=== PATIENT | male | born 1975 | race Caucasian/White ===

== ENCOUNTER → 2017-06-12 | Outpatient (CLI) | payer BC ==
--- NOTE | 2017-06-13 15:04 | SLEEP ---
DATE OF STUDY: 06/12/2017 DATE OF STUDY: 06/12/2017 ATTENDING PHYSICIAN: Dr. Richard Rodríguez. The patient is 41 years old who has a BMI of 31. The patient underwent home sleep study to rule out SHARMAINE. Total recording time was 348 minutes. During the night study, the patient had no central apneas, 14 obstructive and 13 mixed apneas and 8 hypopneas. The patient's apnea hypopnea index was 6 per hour with a supine index of 46 per hour. Nocturnal oximetry study revealed 19.8 minutes were spent in oxygen saturation of less than 90% with the lowest of 85%. Mean heart rate was 76 beats per minute. IMPRESSION: 1. Mild sleep apnea-hypopnea syndrome with worsening during supine sleep. Total AHI 6 per hour with a supine AHI of 46 per hour. 2. Nocturnal hypoxia secondary to obstructive sleep apnea. RECOMMENDATIONS: 1. The patient has mild sleep apnea, which is predominantly positional. I would recommend trying positional therapy/avoiding sleeping in supine position. 2. If the patient's clinical symptoms do not improve, then consider either an oral appliance or a trial of CPAP titration. 3. Weight loss is strongly advised. 4. Avoid [employer] depressants. 5. Caution regarding driving until patient's hypersomnia is resolved with above recommendations. MD CELINA ZAMORA/marita JOB#: [id number] / [id number] Dr. Richard Mccabe
== END | disposition home or self-care (01) ==
LOC: RT 06:54
PROVIDERS: ATTEND Family Medicine
DX: G47.33 Obstructive sleep apnea (adult) (pediatric) (principal)
CPT/HCPCS: G0399

== ENCOUNTER → 2017-07-30 | Outpatient (CLI) | payer BC | END | disposition home or self-care (01) | LOC: KCIC 08:59 | DX: M16.0 Bilateral primary osteoarthritis of hip (principal); M40.292 Other kyphosis, cervical region; M46.02 Spinal enthesopathy, cervical region | CPT/HCPCS: 72020; 72170; 73120; 73565; 73620 ==

== ENCOUNTER → 2017-09-04 | Outpatient (CLI) | payer BC | END | disposition home or self-care (01) | LOC: KCIC CT 08:04 | DX: J32.9 Chronic sinusitis, unspecified (principal); J34.2 Deviated nasal septum | CPT/HCPCS: 70486 ==

== ENCOUNTER 2017-10-16 10:17 | Emergency (ER) | payer BC ==
[2017-10-16 10:33] LABS: ADD MAN DIFF? NO
[2017-10-16 10:36] LABS: BASO # 0.1 x10^3/uL (0.0-0.2); BASO % 1 % (0-3); EOS # 0.3 x10^3/uL (0.0-0.7); EOS % 5 % (0-3); HEMATOCRIT 42.5 % (39.0-53.0); HEMOGLOBIN 14.7 g/dL (13.0-17.5); LYMPH # 2.6 x10^3/uL (1.0-4.8); LYMPH % 39 % (24-48); MEAN CORPUSCULAR HEMOGLOBIN 30 pg (25-35); MEAN CORPUSCULAR HGB CONC 35 g/dL (31-37); MEAN CORPUSCULAR VOLUME 87 fL (79-100); MONO # 0.5 x10^3/uL (0.0-1.1); MONO % 8 % (0-9); NEUT # 3.1 x10^3uL (1.8-7.7); NEUT % 47 % (31-73); PLATELET COUNT 193 x10^3/uL (140-400); RED CELL DISTRIBUTION WIDTH 13.3 % (11.5-14.5); WHITE BLOOD COUNT 6.7 x10^3/uL (4.0-11.0)
[2017-10-16 10:51] LABS: INR 1.1 (0.8-1.1); PARTIAL THROMBOPLASTIN TIME 26 SEC (24-38); PROTHROMBIN TIME PATIENT 13.4 SEC (11.7-14.0)
[2017-10-16 10:52] LABS: ANION GAP 9 (6-14); BLOOD UREA NITROGEN 24 mg/dL (8-26); CALCIUM 9.4 mg/dL (8.5-10.1); CARBON DIOXIDE 27 mmol/L (21-32); CHLORIDE 103 mmol/L (98-107); CREATININE 0.9 mg/dL (0.7-1.3); GFR 92.1; GLUCOSE 110 mg/dL (70-99); POTASSIUM 4.1 mmol/L (3.5-5.1); SODIUM 139 mmol/L (136-145)
[2017-10-16 10:58] LABS: ALBUMIN 3.6 g/dL (3.4-5.0); ALK PHOS 72 U/L (46-116); ALT (SGPT) 52 U/L (16-63); AST (SGOT) 26 U/L (15-37); DIRECT BILIRUBIN 0.1 mg/dL (0.0-0.2); LIPASE 166 U/L (73-393); TOTAL BILIRUBIN 0.5 mg/dL (0.2-1.0); TOTAL PROTEIN 7.3 g/dL (6.4-8.2)
[2017-10-16 11:01] LABS: TROPONINI < 0.017 ng/mL (0.000-0.055)
[2017-10-16 11:02] LABS: NT-PRO BNP 24 pg/mL (0-124)
[2017-10-16 13:07] LABS: D-DIMER 0.28 ug/mlFEU (0.00-0.50)
[2017-10-16 14:14] LABS: TROPONINI < 0.017 ng/mL (0.000-0.055)
== END 2017-10-16 15:11 | disposition home or self-care (01) ==
LOC: ER 10:17
DX: R07.89 Other chest pain (principal); K21.9 Gastro-esophageal reflux disease without esophagitis; M06.9 Rheumatoid arthritis, unspecified; Z87.891 Personal history of nicotine dependence
CPT/HCPCS: 36415; 71045; 80048; 80076; 83690; 83880; 84484; 85025; 85379; 85610; 85730; 93005; 99285-25

== ENCOUNTER → 2017-12-09 | Outpatient (CLI) | payer BC | END | disposition home or self-care (01) | LOC: ECHO 12:14 | DX: I45.10 Unspecified right bundle-branch block (principal); R07.9 Chest pain, unspecified | CPT/HCPCS: 93017; 93350 ==